=== PATIENT | female | born 1990 | race Two or more races ===

== ENCOUNTER 2016-10-18 18:14 | Emergency (ER) | payer OTHER ==
--- NOTE | ~2016-10-18 | CR63 ---
[facility] A Service of [facility] RADIOLOGY TEXT RESULTS PATIENT: ROSEMARY VENTURA LOCATION: [facility] : [birth year] UNIT #: [id number] AGE: [address]: Rochelle Jane SEX: F ORDER DR: [id number] [facility]. [place], [place] [address] [id number] MR#: [id number] Acc #: [id number] NAME: ROSEMARY VENTURA : 1990 SEX: F STUDY DATE/TIME: 10/18/2016 18:28 UNIT: [facility] ROOM: STUDY DESCRIPTION: CR Chest 2 View Attending Physician: Rochelle Jane P.A.-C. Ordering Physician: Rochelle Jane P.A.-C. Primary Care Physician: Jered Guillaume M.D. MEDICAL IMAGING REPORT This report is preliminary unless electronic signature is present EXAM 2 views of the chest COMPARISON None INDICATION 26-year-old female with cough and chest congestion for 5 days. FINDINGS No evidence of pneumothorax, pleural effusion, pulmonary edema or pneumonia. It is actually noted that an AP view was performed and therefore the enlarged heart shadow is within normal limits for AP technique. Similarly, vasculature of the lungs is likely within normal limits. IMPRESSION The heart size appears enlarged but actually this exam was performed with AP technique and therefore cardiomediastinal structures are within normal limits given AP technique. There is no evidence of acute airspace disease, pneumothorax or pleural effusion. Dictated by... Srinivas Malone M.D. THIS IS AN ELECTRONICALLY VERIFIED REPORT Srinivas Malone M.D. at 10/19/2016 9:14 PM Artur TD: 10/19/2016 13:50 JOB #: [id number] [facility] A Service of [facility] RADIOLOGY TEXT RESULTS PATIENT: ROSEMARY VENTURA LOCATION: [facility] : 90 UNIT #: [id number] AGE: [address]: Rochelle Jane SEX: F ORDER DR: MEDICAL IMAGING REPORT Page 1 of 1 COPY
[2016-10-18 18:42] LABS: INFLUENZA A NEG (NEG); INFLUENZA B NEG (NEG)
== END 2016-10-18 19:35 | disposition home or self-care (01) ==
LOC: CFTX 18:14
PROVIDERS: Physician Assistant
DX: J06.9 Acute upper respiratory infection, unspecified (principal); H10.9 Unspecified conjunctivitis
CPT/HCPCS: 71020; 84703; 87651; 87804; 99283